=== PATIENT | male | born 1985 | race Caucasian/White ===

== ENCOUNTER 2023-12-02 21:54 | Emergency (ER) | payer BC ==
[2023-12-02] MEDS ORDERED: Morphine 2 MG/ML VIAL ONE (23:06)
[2023-12-02] MEDS ORDERED: Ondansetron ODT 4 MG TAB ONE (23:07)
[2023-12-03] MEDS ORDERED: HYDROcodone/Acetaminophen 5/325 mg Tablet ONE (00:41)
[2023-12-03] MEDS ORDERED: LevoFLOXacin 500 MG TAB ONE (00:41)
== END 2023-12-03 00:09 | disposition home or self-care (01) ==
LOC: ERS 21:54
DX: N45.1 Epididymitis (principal); N50.812 Left testicular pain; F17.210 Nicotine dependence, cigarettes, uncomplicated; Z55.6 Problems related to health literacy
CPT/HCPCS: 36415; 76870; 83690; 93976; 96372; J2272; Q0162